=== PATIENT | male | born 1970 | race Caucasian/White ===

== ENCOUNTER 2016-02-21 12:53 | Emergency (ER) | payer MEDICAID ==
[~2016-02-21] VITALS: Ht 182.9 cm; Wt 79.5 kg
[~2016-02-21 12:53] MED LIST: DOXYCYCLINE 10100 MG PO; NORCO 325 MG-51 TAB PO; ULTRAM 50MG TAB50 MG PO
[2016-02-21 13:39] VITALS: BP 122/81; TEMP 97.9
[2016-02-21] MEDS ORDERED: REMERON 15M15 MG/TA1 PO (14:55)
[2016-02-21] MEDS ORDERED: SEROQUEL 1100 MG/TAB PO (14:56)
[2016-02-21] MEDS ORDERED: SEROQUEL 200MG200 MG PO (14:56)
[2016-02-21] MEDS ORDERED: ROXICODONE 55 MG/TAB PO (14:57)
[2016-02-21] MEDS ORDERED: RISPERDAL2 MG PO (14:57)
[2016-02-21 16:00] LABS: BASO % 0.6 % (0.0-2.0); EOS # 0.2 (0.0-0.7); EOS % 3.4 % (0-4.0); GRAN # 3.3 (1.4-6.5); GRAN % 61.2 % (42.2-75.2); HEMATOCRIT 41.3 % (42.0-52.0); HEMOGLOBIN 13.3 g/dl (13.5-18.0); LYMPH # 1.3 (1.2-3.4); LYMPH % 25.2 % (20.0-51.0); MEAN CELL VOLUME 90 fl (80.0-100.0); MEAN CORPUSCULAR HEMOGLOBIN 29 pg (27.0-31.0); MEAN CORPUSCULAR HGB CONC 32 g/dl (33.0-37.0); MEAN PLATELET VOLUME 9.3 fl (7.4-10.4); MONO # 0.5 (0.1-0.6); MONO % 9.4 % (1.7-9.3); PLATELET COUNT 286 K/mm3 (130-400); RED BLOOD COUNT 4.61 M/mm3 (4.20-5.60); WHITE BLOOD COUNT 5.3 K/mm3 (4.8-10.8)
[2016-02-21 16:08] LABS: ADJUSTED CALCIUM 9.6 mg/dL (8.4-10.2); ALBUMIN 3.8 gm/dL (3.5-5.0); BILIRUBIN,TOTAL 0.7 mg/dL (0.0-1.0); CALCIUM 9.4 mg/dL (8.4-10.2); CREATININE, serum 0.75 mg/dL (0.66-1.25); TOTAL PROTEIN 7.1 gm/dL (6.4-8.2)
[2016-02-21 16:36] LABS: PH 5 (5-8); SQUAMOUS EPITHELIAL 0-2 /hpf; URINE APPEARANCE Clear; URINE BACTERIA None Seen /hpf; URINE BILIRUBIN Negative (NEGATIVE); URINE BLOOD Negative (NEGATIVE); URINE COLOR Yellow; URINE GLUCOSE Negative (NEGATIVE); URINE KETONE Negative (NEGATIVE); URINE RBC 0-2 /hpf; URINE WBC 0-2 /hpf
[2016-02-21] MEDS ORDERED: NORCO 325 MG-51 TAB PO (16:42)
[2016-02-21 16:45] VITALS: PULSE 90
== END 2016-02-21 17:36 | disposition home or self-care (01) ==
LOC: COL.ER 12:53
PROVIDERS: Nurse Practitioner
DX: M79.672 Pain in left foot (principal); M79.671 Pain in right foot; R30.0 Dysuria